=== PATIENT | female | born 1935 | race Caucasian/White ===

== ENCOUNTER 2021-04-11 08:45 | Outpatient (CLI) | END 2021-04-11 08:46 | disposition home or self-care (01) | LOC: CSHWCC 08:45 | PROVIDERS: ATTEND Nurse Practitioner Family | DX: S81.802A Unspecified open wound, left lower leg, initial encounter (principal); E89.0 Postprocedural hypothyroidism; I10 Essential (primary) hypertension; R25.1 Tremor, unspecified; R60.0 Localized edema; Z87.828 Personal history of other (healed) physical injury and trauma ==